=== PATIENT | male | born 1960 | race Caucasian/White ===

== ENCOUNTER → 2020-02-05 | Day surgery (SDC) | payer OTHER ==
[2020-02-03 15:13] LABS: BASOPHILS # (AUTO) 0.1 (0.0-0.1); BASOPHILS % 1.6 % (0.0-1.0); EOSINOPHILS # (AUTO) 0.1 (0.0-0.4); EOSINOPHILS % 1.7 % (0.0-6.0); HEMATOCRIT 46.8 % (38.2-49.6); HEMOGLOBIN 14.9 g/dL (14.0-18.0); LYMPHOCYTES # (AUTO) 2.5 (1.0-3.2); LYMPHOCYTES % 31.3 % (18.0-39.1); MEAN CORPUSCULAR HEMOGLOBIN 29.7 pg (28-32); MEAN CORPUSCULAR HGB CONC 31.8 g/dL (31-35); MEAN CORPUSCULAR VOLUME 93.2 fL (81-99); MONOCYTES # (AUTO) 0.7 (0.2-0.8); MONOCYTES % 8.6 % (4.4-11.3); NEUTROPHILS # (AUTO) 4.5 (2.1-6.9); NEUTROPHILS % 56.2 % (38.7-80.0); PLATELET COUNT 297 x10e3/uL (140-360); RED BLOOD COUNT 5.02 x10e6/uL (4.3-5.7); RED CELL DISTRIBUTION WIDTH 13.4 % (11.7-14.4)
[2020-02-03 15:39] LABS: ALANINE AMINOTRANSFERASE 30 IU/L (0-55); ALBUMIN 4.1 g/dL (3.5-5.0); ALBUMIN/GLOBULIN RATIO 1.1 (0.8-2.0); ALKALINE PHOSPHATASE 59 IU/L (40-150); ANION GAP 14.7 mmol/L (8-16); BLOOD UREA NITROGEN 21 mg/dL (7-26); BUN/CREATININE RATIO 22 (6-25); CALCIUM 9.1 mg/dL (8.4-10.2); CARBON DIOXIDE 28 mmol/L (22-29); CHLORIDE 100 mmol/L (98-107); CREATININE, SERUM 0.94 mg/dL (0.72-1.25); EST GLOMERULAR FILTRATION RATE > 60 ML/MIN (60-); GLUCOSE 130 mg/dL (74-118); POTASSIUM 3.7 mmol/L (3.5-5.1); SODIUM 139 mmol/L (136-145)
--- NOTE | 2020-02-03 16:00 | Diagnostic Imaging Report ---
EXAMINATION: CHEST 2 VIEWS INDICATION: Pre-operative COMPARISON: None FINDINGS: LINES/TUBES:None LUNGS:The lungs are well-inflated. No focal consolidation or pulmonary edema. PLEURA:No pleural effusion or pneumothorax. MEDIASTINUM:The cardiomediastinal silhouette appears normal in size and shape. BONES/SOFT TISSUES:No acute osseous injury. ABDOMEN:No free air under the diaphragm. IMPRESSION: No focal pneumonia or pulmonary edema. Signed by: Ana Tavera MD on 02/03/2020 3:56 PM
[~2020-02-05] MED LIST: BOTULINUM TOXIN TYPE A 100 UNIT VIAL IM ONE; CEFAZOLIN SOD 1 GM/NS 50ML 100 ML IV ONE; DETROL LA4 MG PO; DEXAMETHASONE SOD PHOS INJ 4 MG/ML VIAL ONE; FENTANYL CITRATE/PF 100MCG/2 ML INJ ONE; IOPAMIDOL 300MG/ML 50ML INFUS..BTL IV ONE; LIDOCAINE HCL 2% LOCAL INJ 5 ML SDV VIAL INJ ONE; MIDAZOLAM HCL 2 MG/2 ML VIAL ONE; ONDANSETRON HCL INJ 2MG/ML 2ML 2 MG/ML VIAL ONE; PROPOFOL IV EMULSION 10 MG/ML 20 ML VIAL ONE; SEVOFLURANE INHAL SOLN 250 ML PEN BTL ONE
[2020-02-05 15:35] VITALS: BP 139/96
--- NOTE | 2020-02-05 19:23 | Operative Report ---
DATE OF PROCEDURE: 02/05/2020 SURGEON: Jomar James MD PREOPERATIVE DIAGNOSES: Urethral strictures and neurogenic bladder. POSTOPERATIVE DIAGNOSES: Urethral strictures and neurogenic bladder. OPERATIONS PERFORMED: Balloon dilatation of bulbar urethra stricture, severe, cystoscopy, bilateral retrograde pyelograms, and Botox injection intravesical. ANESTHESIA: General. FINDINGS: Severe urethral stricture, open prostate. The urethral strictures in the bulbar urethra. The bladder showed grade 2 to 3 trabeculation, cellules and saccules. No stones. Ureteral orifices were normal both sides. Retrograde; no stones, no filling defects. No hydronephrosis. Injection was done over the trigone in 3 layers, 6, 6, and 8. PROCEDURE IN DETAIL: With the patient under satisfactory general anesthesia, the patient was placed in the supine position on the operating table. Legs were placed on stirrups. Genitalia was then prepped with pHisoHex and draped in the usual manner. A straight guidewire was introduced to the urethral meatus and advanced into the bladder under fluoroscopy. Once that was done, the urethral balloon dilator was introduced over the guidewire and advanced to the verumontanum. Balloon dilatation was then performed to a pressure of 8 atmospheres of pressure. Under fluoroscopy, we noticed that the balloon had open up the urethral stenosis and stricture. At this point, the balloon was removed together with the guidewire and then introduced a 22-Mongolian cystourethroscope with a 12-degree angle lens and was able to advance the cystoscope passed per urethra stricture without any problems, however, being dilated. Examination of the bladder was performed. Findings as dictated above. At this point, the #8 cone-tip ureteral catheter was introduced and contrast media was injected retrograde up to both kidneys. Findings as dictated above. At this point, replacement of the scope with a 70-degree angle lens, Octaviano bridge was done. Then, with the 10 mL of 100 mcg of Botox was placed into the syringe normal saline for injectable. I chose my 3 layers and placed 6, 6, and 8 above the trigone. After that, the Bugbee electrode was used to fulgurate 2 of the injection sites that were bleeding and once that was done, then the bladder was filled. Instruments were removed. A #16-Mongolian Fernandez catheter was passed per urethra into the bladder and left indwelling. This was connected to a bag and set. The patient was then taken to recovery room in satisfactory condition. DISCHARGE INSTRUCTIONS: He was given 10 mL syringe to remove the Fernandez tomorrow and then I will see him in the office again in a couple weeks. We have discussed that to make sure that he is able to catheterize himself appropriately and empty the bladder appropriately and whether he is retaining too much urine or not. He was also come back to my office within 6 weeks to reassess his urethral stricture, which was quite severe and hard. We probably need to dilated again in 6 weeks. MD BAKARI Rizzo/DARRION /[id number]
== END | disposition home or self-care (01) ==
LOC: OR 11:29
PROVIDERS: ATTEND Urology
DX: N31.9 Neuromuscular dysfunction of bladder, unspecified (principal); N35.919 Unspecified urethral stricture, male, unspecified site; E11.9 Type 2 diabetes mellitus without complications; N39.41 Urge incontinence; Z01.810 Encounter for preprocedural cardiovascular examination; Z01.812 Encounter for preprocedural laboratory examination; Z01.818 Encounter for other preprocedural examination; Z20.828 Contact with and (suspected) exposure to other viral communicable diseases; N35.912 Unspecified bulbous urethral stricture, male
CPT/HCPCS: 36415 ×2; 52281; 71046; 74420; 80053; 82948; 85025; 87086; 87186; 93005; C1726; C1758; J0587; J0690; J1100; J2001; J2250; J2405; J2704; J3010; Q9967; U0002